=== PATIENT | male | born 2000 | race Caucasian/White ===

== ENCOUNTER 2019-10-20 01:20 | Emergency (ER) | payer OTHER ==
[~2019-10-20] VITALS: Ht 182.8 cm; Wt 77.0 kg
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
[2019-10-20] MEDS ORDERED: LACTATED RINGERS 1,000 ML IV ONE (01:39)
[2019-10-20] MEDS ORDERED: ONDANSETRON 4 MG/2 ML (SDV) Z0FRAN IVP ONE (01:45)
[2019-10-20 02:13] LABS: ALBUMIN 4.3 GM/DL (3.2-4.5)
[2019-10-20 02:14] LABS: CHLORIDE 109 MMOL/L (98-107); POTASSIUM 3.6 MMOL/L (3.6-5.0); SODIUM 141 MMOL/L (135-145)
[2019-10-20 02:15] LABS: CALCIUM 8.6 MG/DL (8.5-10.1)
[2019-10-20 02:16] LABS: GLUCOSE 129 MG/DL (70-105); TOTAL PROTEIN 7.3 GM/DL (6.4-8.2)
[2019-10-20 02:17] LABS: CARBON DIOXIDE 19 MMOL/L (21-32)
[2019-10-20 02:18] LABS: BILIRUBIN,TOTAL 0.3 MG/DL (0.1-1.0)
[2019-10-20 02:19] LABS: ALKALINE PHOSPHATASE 84 U/L (40-136)
[2019-10-20 02:20] LABS: CREATININE SERUM 1.06 MG/DL (0.60-1.30); GFR ESTIMATED > 60
[2019-10-20 02:21] LABS: BUN/CREATININE RATIO 13
[2019-10-20 02:23] LABS: ALANINE AMINOTRANSFERASE 20 U/L (0-55)
[2019-10-20 02:28] LABS: BASOPHILS % (AUTO) 0 % (0-10); EOSINOPHILS # (AUTO) 0.1 10^3/uL (0.0-0.3); EOSINOPHILS % (AUTO) 1 % (0-10); HEMATOCRIT 42 % (40-54); HEMOGLOBIN 14.5 G/DL (13.3-17.7); LYMPHOCYTES # (AUTO) 3.4 X 10^3 (1.0-4.0); LYMPHOCYTES % (AUTO) 41 % (12-44); MEAN CORPUSCULAR HEMOGLOBIN 31 PG (25-34); MEAN CORPUSCULAR HGB CONC 35 G/DL (32-36); MEAN CORPUSCULAR VOLUME 88 FL (80-99); MONOCYTES # (AUTO) 0.4 X 10^3 (0.0-1.0); MONOCYTES % (AUTO) 5 % (0-12); NEUTROPHILS # (AUTO) 4.3 X 10^3 (1.8-7.8); NEUTROPHILS % (AUTO) 52 % (42-75); PLATELET COUNT 264 10^3/uL (130-400); RED CELL DISTRIBUTION WIDTH 12.2 % (10.0-14.5); WHITE BLOOD COUNT 8.3 10^3/uL (4.3-11.0)
[2019-10-20] MEDS ORDERED: fentaNYL INJECTION 100 MCG/2 ML AMP IVP ONE (02:45)
[2019-10-20] MEDS ORDERED: LIDOCAINE 1% INJ 20 ML 20 ML VIAL INJ ONE (04:00)
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
[2019-10-20] MEDS ORDERED: HYDR-3812 PO (04:26)
[2019-10-20 04:40] VITALS: BP 110/82
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
== END 2019-10-20 04:40 | disposition home or self-care (01) ==
LOC: ER 01:26
DX: S02.32XA Fracture of orbital floor, left side, initial encounter for closed fracture (principal); S01.81XA Laceration without foreign body of other part of head, initial encounter; R40.2142 Coma scale, eyes open, spontaneous, at arrival to emergency department; R40.2252 Coma scale, best verbal response, oriented, at arrival to emergency department; R40.2362 Coma scale, best motor response, obeys commands, at arrival to emergency department; Y04.0XXA Assault by unarmed brawl or fight, initial encounter
CPT/HCPCS: 12011; 70450; 70486; 80053; 85025; 99284; G0480; 36415; 80320